=== PATIENT | female | born 1945 ===

== ENCOUNTER 2017-02-22 09:25 | Day surgery (SDC) | payer MEDICARE, OTHER ==
[~2017-02-22] VITALS: Ht 162.6 cm; Wt 60.0 kg
[~2017-02-22 09:25] MED LIST: 0.9% Sodium Chloride 1,000 ML IV SCH; ASPI-973 PO; FLUT9.9S NS; LISI-571 PO; OMEP10CA4 PO; Sodium Chloride LOK Flush 10 mL Syringe IV PRN; TRIA1CAP PO; [UNRECOGNIZED DRUG - CODE] PO; fentaNYL-PF 50 mCg/mL 2 mL Inj IVPUSH PRN
[2017-02-22 10:03] VITALS: BP 145/81; PULSE 84; RESP 16; O2SAT 98
[2017-02-22] MEDS ORDERED: METF500T4 PO (10:06)
[2017-02-22] MEDS ORDERED: LORA10CA PO (10:06)
[2017-02-22 11:37] VITALS: BP 142/84; PULSE 77; RESP 16; O2SAT 99
[2017-02-22 11:51] VITALS: BP 142/69; PULSE 74; RESP 12; O2SAT 98
[2017-02-22 11:56] VITALS: BP 146/80; PULSE 72; RESP 16; O2SAT 98
[2017-02-22 11:59] VITALS: BP 152/79; PULSE 70; RESP 12; O2SAT 95
--- NOTE | 2017-02-22 13:44 | ENDO ---
[address] [address] ENDOSCOPY PROCEDURE PATIENT: JAY WHITTEN : 1945 MR#: [id number] ADMIT: 02/22/2017 JOB ID: [id number] PROCEDURE: Colonoscopy. INDICATION: Personal history of colon polyps. Patient's ASA classification is II. Mallampati score is II. MEDICATIONS: Versed at 7 mg, fentanyl 125 mcg. INSTRUMENT USED: PCF-H180AL. Prep quality was fair. PROCEDURE DETAILS: After informed consent was obtained, the patient was brought to the GI suite, where she was placed on oxygen via nasal cannula and monitored with continuous pulse oximeter, telemetry, and blood pressure monitoring. A time-out was performed. Then, she was placed in the left lateral decubitus position and medications were administered for sedation. Digital rectal exam was performed and was unremarkable. The colonoscope was then inserted into the rectum and advanced under direct visualization to the cecum, which was identified by the presence of the ileocecal valve and appendiceal orifice. Once the cecum was reached, colonoscope was withdrawn back into the rectum and mucosa and lumen were examined. In the rectum, retroflexion was performed. Following retroflexion, remaining air in the rectum was suctioned, and procedure was completed. FINDINGS: 1. In the ascending colon, there were five polyps ranging in size from diminutive to approximately 4 mm. Polyps were removed with a combination of cold biopsy forceps and cold snare. 2. In the sigmoid colon, there were three polyps ranging in size from 4 mm to 6 mm. Polyps were removed with a combination of hot snare and cold snare. 3. In the rectum, there was an approximately 4 mm sessile polyp that was removed with a cold snare. 4. Scattered diverticula were seen throughout the left side of the colon. 5. In the ascending colon, there was a submucosal mass. Appearance was consistent with a lipoma. 6. In the ascending colon, there was evidence of a previously placed tattoo. The mucosa distal to and proximal to this tattoo was closely examined and no abnormalities were noted. IMPRESSION: 1. Five ascending colon polyps. 2. Three sigmoid polyps. 3. One rectal polyp. 4. Left-sided diverticulosis. 5. Ascending colon lipoma. 6. Previously placed tattoo in the ascending colon. RECOMMENDATIONS: 1. Avoid NSAIDs and anticoagulants for 72 hours. 2. Fiber-rich diet. 3. Repeat colonoscopy in two years. COMPLICATIONS: None. ESTIMATED BLOOD LOSS: Less than 5 mL. CC: Saima Russell, primary care provider.
--- NOTE | 2017-02-25 12:15 | PATH ---
SURGICAL PATHOLOGY Attending Physician:Sukh Adams CASE STATUS: Signed Out PATIENT NAME: JAY WHITTEN PID: [id number] : 1945 DATE COLLECTED:02/22/2017 20:56 SPECIMEN: 1: Colon, Polyp 2: Colon, Polyp 3: Rectum, Biopsy CLINICAL HISTORY: 1). ASCENDING POLYPS X5 2). SIGMOID POLYP X3 3). RECTAL POLYP X1 FINAL DIAGNOSIS: 1.ASCENDING COLON POLYPS: TUBULAR ADENOMA INVOLVING MULTIPLE BIOPSY FRAGMENTS. SESSILE SERRATED ADENOMA INVOLVING SINGLE BIOPSY FRAGMENT. 2.SIGMOID COLON POLYPS: HYPERPLASTIC POLYPS INVOLVING ALL BIOPSY FRAGMENTS. 3.RECTAL POLYP: MINUTE TISSUE FRAGMENT DID NOT SURVIVE PROCESSING WITH NO TISSUE PRESENT ON THE HISTOLOGIC SECTION. ICD10 D12.2 GROSS DESCRIPTION: Received are three formalin-filled containers, each labeled with the patient' s name. 1. Received in formalin, labeled with the patient' s name and "ascending polyps x5", are multiple fragments of bourne, soft tissue ranging in size from 0.1 x 0.1 x 0.1 cm to 0.2 x 0.2 x 0.1 cm. All fragments are totally submitted in cassette 1A. 2. Received in formalin, labeled with the patient' s name and "sigmoid polyps x3", are three fragments of bourne, soft tissue ranging in size from 0.2 x 0.2 x 0.1 cm to 0.6 x 0.5 x 0.4 cm. The larger fragment is divided. All fragments are totally submitted in cassette 2A. 3. Received in formalin, labeled with the patient' s name and "rectal polyp x1", is one fragment of bourne, soft tissue measuring less than 0.1 cm by less than 0.1 cm by less than 0.1 cm. The fragment is totally submitted in cassette 3A. ([id number]) MICRO DESCRIPTION: See diagnosis. ICD-9 CODES: CPT CODES: 1: 18690 2: 00984 3: 26463 Electronically Signed Out Ken Fang MD [facility] [address], [place] [address] Technical component performed at [facility], [address], [place], [address]
== END 2017-02-22 23:59 | disposition home or self-care (01) ==
LOC: END 09:25
PROVIDERS: ATTEND Internal Medicine Gastroenterology
DX: Z12.11 Encounter for screening for malignant neoplasm of colon (principal); D12.2 Benign neoplasm of ascending colon; K63.5 Polyp of colon; K62.1 Rectal polyp; D17.79 Benign lipomatous neoplasm of other sites; K57.30 Diverticulosis of large intestine without perforation or abscess without bleeding; Z86.010 Personal history of colon polyps; K21.9 Gastro-esophageal reflux disease without esophagitis; F17.210 Nicotine dependence, cigarettes, uncomplicated; Z79.82 Long term (current) use of aspirin
CPT/HCPCS: 45380; 45385; 99153; G0500; J2250; J3010; J7030

== ENCOUNTER 2017-02-24 22:26 | Emergency (ER) | payer MEDICARE, OTHER ==
[~2017-02-24] VITALS: Ht 162.6 cm; Wt 60.5 kg
[~2017-02-24 22:26] MED LIST changes: -0.9% Sodium Chloride 1,000 ML IV SCH; +LORA10CA PO; +METF500T4 PO; -OMEP10CA4 PO; -Sodium Chloride LOK Flush 10 mL Syringe IV PRN; -TRIA1CAP PO; -[UNRECOGNIZED DRUG - CODE] PO; -fentaNYL-PF 50 mCg/mL 2 mL Inj IVPUSH PRN
[2017-02-24 22:30] VITALS: BP 197/93; PULSE 90; RESP 20
--- NOTE | 2017-02-24 23:01 | ED.REPORT ---
HPI-Abd Pain F 40 and Over Date of Service Feb 24, 2017 ED Provider: Emmanuel Bennett MD A 71 year old female with a history of hypertension on Lisinopril and diabetes mellitus presents to the ED with cramping epigastric abdominal pain that began yesterday. The episodes of pain are intermittent and radiate to her chest. She also reports an episode of associated SOB. Patient had a recent colonoscopy 2 days ago that revealed 5 ascending colon polyps, 3 sigmoid polyps and 1 rectal polyp that were subsequently removed. Patient has not had a BM in 4 days. She denies any recent rectal bleeding, hematochezia, diarrhea, vomiting, fever, or chills. Patient denies any previous abdominal surgeries. Onset of this pain was noted after eating ice cream. Nursing Notes Stated Complaint: STOMACH PAIN Chief Complaint: Female Abdominal Pain Nursing Notes Reviewed: Yes Allergies: Coded Allergies: No Known Drug Allergies (Verified Allergy, Unknown, 01/01/14) Scheduled Aspirin (Aspirin) 81 Mg Tablet 81 MG PO DAILY Lisinopril (Lisinopril) 5 Mg Tablet 5 MG PO DAILY Loratadine (Claritin) 10 Mg Capsule 10 MG PO DAILY Metformin (Metformin) 500 Mg Tablet 500 MG PO DAILY Omeprazole (Omeprazole) 20 Mg Tablet.dr 20 MG PO BID Miscellaneous Medications Fluticasone Propionate (Flonase Allergy Relief) 50 Mcg/Actuation [place].susp 9.9 ML NS General Time Seen by MD: 23:00 Chief Complaint Abdominal pain Hx Obtained From: Patient Arrived By: Walk-in Sudden in Onset?: No Onset Occurred: 2 days ago Symptom Duration: Intermittent Progression since Onset: Unchanged Location: : Epigastric Quality: Cramping, Painful Radiation: : Epigastric Severity: Current: Moderate Severity: Maximum: Moderate Associated with: Reports: Chest pain, Constipation, Shortness of breath, Denies: Chills, Diarrhea, Fever, Hematochezia, Vomiting Pertinent Negative: Pt denies other symptoms Recent Healthcare: No recent hospitalization, Recent doctor visit Risk Factors )( AAA Risk Stratification Risk factors reviewed Past Medical History Past Medical History 1. Hypertension 2. Diabetes Mellitus 3. Possible Leukocytosis dermatitis Past Surgical History Recent Colonoscopy with biposy Smoking History Current Every Day Smoker Social History Other Social History: Good social support, , Local resident Ambulatory Status Independent Review of Systems Denies rectal bleeding Constitutional: Denies: Chills, Fever Respiratory: Reports: Shortness of breath Cardiovascular: Reports: Chest pain GI: Reports: Abdominal pain (epigatric), Constipation, Denies: Bloody/tarry stool, Diarrhea, Hematochezia, Vomiting Complete sys rev & neg: except as marked. Physical Exam Vital Signs Vital Signs (First) Date Time Temp Pulse Resp B/P Pulse Ox O2 Delivery O2 Flow Rate FiO2 02/24/17 22:30 90 20 197/93 Room Air 02/25/17 00:37 36.1 97 Initial VS: Reviewed Head / Eyes: Atraumatic, Normocephalic, PERRL Neck: Supple, Non-tender, Full range of motion Extremities: Vascular intact, Neuro intact, No swelling, No tenderness Skin: Warm, Dry, No cyanosis Neurologic: Alert, Oriented, Nonfocal Psychiatric: Mood/affect normal, Behavior normal, Normal thought content General/Constitutional: Awake, Alert, No acute distress, Well appearing, Well developed Respiratory / Chest: Atraumatic, Breath sounds NL, Breath sounds = bilat, No respiratory distress Cardiovascular: Heart rate NL, Regular rhythm, Heart sounds NL Abdomen: Atraumatic, Soft, No rebound, No distention Tenderness/Guarding/Rebound: Positive: Guarding voluntary, Tender RUQ..., Tender epigastric Back: Atraumatic, Inspection NL Interpretation & Diagnostics Lab Results Interpretation Result Diagram: 02/24/175 02/24/172254 Test 02/24/17 22:55 02/25/17 00:01 White Blood Count 12.2th/mm3 (3.8-10.1) Red Blood Count 5.18mil/mm3 (3.90-5.20) Hemoglobin 15.1g/dL (12.0-15.6) Hematocrit 44.5% (35.0-46.0) Mean Corpuscular Volume 85.9fL (81-100) Mean Corpuscular Hemoglobin 29.2pg (27.0-35.0) Mean Corpuscular Hemoglobin Concent 33.9% (32.0-37.0) Red Cell Distribution Width 14.5% (12.3-15.4) Platelet Count 216bil/L (150-400) Neutrophils (%) (Auto) 69.0% (40-74) Lymphocytes (%) (Auto) 21.2% (14-46) Monocytes (%) (Auto) 7.6% (4-12) Eosinophils (%) (Auto) 1.7% (0-5) Basophils (%) (Auto) 0.3% (0-3) Sodium Level 137mEq/L (134-144) Potassium Level 3.5mEq/L (3.5-5.2) Chloride Level 98mEq/L (97-108) Carbon Dioxide Level 20mmol/L (18-29) Blood Urea Nitrogen 13mg/dL (8-27) Creatinine 0.72mg/dL (0.57-1.00) Estimat Glomerular Filtration Rate 114mL/min (>59) Glucose Level 157mg/dL (60-99) Calcium Level 9.7mg/dL (8.5-10.1) Magnesium Level 1.6mg/dL (1.6-2.6) Total Bilirubin 0.2mg/dL (0.0-1.2) Aspartate Amino Transf (AST/SGOT) 12U/L (0-50) Alanine Aminotransferase (ALT/SGPT) 10U/L (0-32) Alkaline Phosphatase 65U/L (25-165) Troponin T 0.010ug/L (0.0-0.011) Total Protein 7.2g/dL (6.4-8.4) Albumin 4.0g/dL (3.4-5.0) Lipase 29U/L (13-60) Hold Coleman Top Tube Received (Received) Urine Color Straw (YELLOW) Urine Appearance Hazy (CLEAR,HAZY) Urine pH 6.0 (5.0-8.0) Urine Specific [place] 1.011 (1.003-1.035) Urine Protein Negativemg/dL (NEG,TRACE) Urine Glucose (UA) Negativemg/dL (NEGATIVE) Urine Ketones Negativemg/dL (NEGATIVE) Urine Occult Blood Trace (NEGATIVE) Urine Nitrite Negative (NEGATIVE) Urine Bilirubin Negative (NEGATIVE) Urine Urobilinogen Normalmg/dL (NORMAL) Urine Leukocyte Esterase Small (NEGATIVE) Urine RBC 0-2/hpf (0-2) Urine WBC 0-5/hpf (0-5) Urine Epithelial Cells Moderate/hpf (NONE-MOD) Urine Crystals Amorphous urates (NONE Urine Bacteria Moderate/hpf (NONE-FEW) Urine Hyaline Casts None/lpf (NONE) Urine Granular Casts None seen (NONE SEEN) Urine Waxy Casts None seen (NONE SEEN) Urine Red Blood Cell Casts None seen (NONE SEEN) Urine White Blood Cell Casts None seen (NONE SEEN) Urine Mucus Present (None Seen) Urine Trichomonas None seen (NONE SEEN) Urine Yeast None (NONE SEEN) Urinalysis Comment None Urine Culture Reflexed Indicated General Lab Results Interp 1: CBC - leukocytosis (WBC - 12) ECG Interpretation ECG Interpretation: Sinus Rhythm Rate 80 Prolonged DC interval Probable left atrial enlargement Time: 23:04 Interpreted by: ED physician X-Ray Abdominal Interpretation No free air Interpretation / Wet Read by: Wet read ED physician CT Abd / Pelvis Interpretation IMPRESSION: Gallbladder distention with questionable mild gallbladder wall edema. Sonographic follow-up recommended. Mild nodular prominence of the left adrenal gland. This could be secondary to benign adenoma/hyperplasia. Neoplasm not excluded and short-term follow-up is recommended. Tiny probably benign left renal cysts. Study type: Abdominal CT IV contrast, Abdom CT oral contrast Interpretation / Wet Read by: Interpret - Radiologist ([facility]) Re-Eval/Medical Decision Med Decision/Clinical Course 71-year-old presents four days out from a colonoscopy with multiple biopsies, with diffuse abdominal pain more prominent in the right upper quadrant. CT shows some hyperemia and edema of the gallbladder wall without obvious stone or obstruction. LFTs are unremarkable. No other significant findings. Suspect the pain is biliary colic by description. She will require FAST exam ultrasound the next few days. Referred to PCP to follow up. Low-fat diet. Omeprazole twice a day for the short-term. Re-Evaluation/Progress : Time of Eval: 01:48 Patient Status: Condition improved, Pain improved Re-Evaluation/Progress Note: The patient's discomfort has improved. All questions about the treatment plan are addressed. The patient understands and agrees with the intended treatment plan to discharge with follow-up ultrasound. Counseled Regarding: Diagnosis, Lab results, Need for follow-up, When/why to return to ED Discharge & Departure Primary Impression: Biliary colic Disposition: Home Discharge Condition All VS Reviewed: Yes Condition: Improved Patient Instructions: Biliary Colic (ED), Low Fat Diet (ED) Additional Instructions: Contact your doctor for follow-up. Contact her also to arrange a fasting morning ultrasound. I suspect he may have gallstones, and that this pain was an episode of biliary colic. This is brought on commonly by ingestion of fatty food, such as ice cream. Refer to the low-fat diet instructions enclosed. Return if any abdominal pain does not resolve over the course of a few hours. Return if any fever, vomiting, or other new symptoms of concern. Omeprazole twice daily for the next ten days then daily for the rest of the month. Referrals: Saima Russell (PCP) Scribe Attestation Portions of this note were transcribed by Carlos Dejesus. I, Dr. Bennett personally performed the history, physical exam and medical decision-making; I reviewed and confirmed the accuracy of the information in the transcribed note. Signed by: Christiano Bill, 02/25/17 0159. copies to: Saima Russell Christopher W MD Feb 24, 2017 23:01 CARLOS DEJESUS Feb 24, 2017 23:11
[2017-02-24 23:07] LABS: BASOPHILS % (AUTO) 0.3 % (0-3); EOSINOPHILS % (AUTO) 1.7 % (0-5); MONOCYTES % (AUTO) 7.6 % (4-12); Mean Corpuscular Hemoglobin 29.2 pg (27.0-35.0); Mean Corpuscular Volume 85.9 fL (81-100); Platelet Count 216 bil/L (150-400)
[2017-02-24 23:28] LABS: Magnesium 1.6 mg/dL (1.6-2.6)
[2017-02-24] MEDS ORDERED: Iohexol 300 mg/mL 30 mL Inj PO ONE (23:45)
[2017-02-25 00:31] LABS: APPEARANCE,URINE HAZY (CLEAR,HAZY); COLOR,URINE STRAW (YELLOW); OCCULT BLOOD,URINE TRACE (NEGATIVE); UROBILINOGEN,URINE NORMAL (NORMAL)
[2017-02-25 00:37] VITALS: BP 200/93; PULSE 79; RESP 16; O2SAT 97
[2017-02-25] MEDS ORDERED: Ondansetron 2 mg/mL 2 mL Inj IVPUSH ONE (00:40)
[2017-02-25] MEDS ORDERED: HYDROmorphone 0.5 mg/0.5 mL iSecure Syringe IVPUSH PRN (00:40)
[2017-02-25] MEDS ORDERED: OMEP20TA86 PO (01:56)
[2017-02-25 02:14] VITALS: BP 180/88; PULSE 74; RESP 16; O2SAT 96
--- NOTE | 2017-02-25 08:56 | DRSVH ---
PROCEDURE: CT ABDOMEN AND PELVIS WITH CONTRAST ([id number]) INDICATIONS: pain post colonoscopy/biopsies TECHNIQUE: After the administration of intravenous contrast, 5 mm thick sections acquired from the diaphragm to the symphysis. 5 mm coronal and sagittal reformats were acquired. For radiation dose reduction, the following was used: automated exposure control, adjustment of mA and/or kV according to patient siz e. COMPARISON: None. FINDINGS: Image quality: Excellent. ABDOMEN: Lung bases: Lung bases are clear. Heart size is normal. Solid organs: There is a 1.0 cm hypodensity in the inferior liver, most likely a cyst or hemangioma. A few indeterminate hepatic hypodensities in liver are noted. Liver and spleen are normal in size an d enhancement. Gallbladder is distended. No gallstones. Biliary system is non dilated. Pancreas en hances normally. Left adrenal thickening. Kidneys demonstrate normal size and enhancement, without h ydronephrosis. A couple of small indeterminate cortical nodules are seen in the left kidney. Peritoneum and bowel: Bowel loops demonstrate normal caliber. There is equivocal concentric thicken ing of sigmoid colon. No free fluid or air. Appendix is normal. There are scattered colonic divertic ej. No evidence for active diverticulitis. Moderate amount of stool in colon. Nodes and vessels: No retroperitoneal or mesenteric adenopathy by size criteria. Aorta and inferior vena cava are normal in size. Moderate to severe atherosclerosis. Miscellaneous: No ventral hernias. PELVIS: Genitourinary: Bladder wall thickness is normal. Miscellaneous: No inguinal hernias or adenopathy. Bones: No suspicious bony lesions. No vertebral body compression fractures. IMPRESSION: 1. Equivocal concentric thickening of sigmoid colon. In the absence of oral contrast, this finding co uld be secondary to artifact but mild inflammatory change cannot be excluded. Recommend clinical cody elation and followup. No free air. 2. Moderate amount of stool in colon. 3. Diverticulosis. No acute diverticulitis. 4. Distended gallbladder. 5. A hepatic cyst or hemangioma in the inferior liver. There multiple tiny indeterminate hepatic hypo densities. 6. A few tiny indeterminate hypodensities in left kidney. No significant discrepancy with the date night caregiver radiology preliminary report. Dictated by: Bernard Frost M.D. on 02/25/2017 at 8:34 Approved by: Bernard Frost M.D. on 02/25/2017 at 8:54
--- NOTE | 2017-02-25 11:54 | DRSVH ---
PROCEDURE: X-RAY CHEST, TWO VIEWS ([id number]) INDICATIONS: abdo/chest pain post colonoscopy TECHNIQUE: 2 views of the chest were acquired. COMPARISON: None. FINDINGS: Surgical changes and devices: None. Lungs and pleura: No pleural effusions or pneumothorax. Lungs are clear. Mediastinum: Mediastinal contours are normal. Heart size is normal. Bones and chest wall: No suspicious bony abnormalities. Soft tissues appear unremarkable. IMPRESSION: No acute cardiopulmonary disease. Dictated by: Ashish [place] [facility] Interpreted: Lukasz Burrell MD on 02/25/2017 at 9:46 Approved by: Lukasz Burrell M.D. on 02/25/2017 at 11:51
== END 2017-02-25 02:15 | disposition home or self-care (01) ==
LOC: SED 22:26
DX: K80.20 Calculus of gallbladder without cholecystitis without obstruction (principal); E11.9 Type 2 diabetes mellitus without complications; I10 Essential (primary) hypertension; F17.200 Nicotine dependence, unspecified, uncomplicated; Z79.82 Long term (current) use of aspirin; Z79.84 Long term (current) use of oral hypoglycemic drugs; Z79.899 Other long term (current) drug therapy
CPT/HCPCS: 36415; 71020; 74177; 80053; 81000; 83690; 83735; 84484; 85025; 87086; 87088; 93005; 96374; 96375; 99285; J1170; J2405; Q9967

== ENCOUNTER → 2017-04-02 | Day surgery (SDC) | payer MEDICARE, OTHER ==
[2017-04-02] VITALS (9 sets, daily range): BP systolic 128–163; BP diastolic 46–74; PULSE 64–85; RESP 12–20; O2SAT 93–100
[~2017-04-02] VITALS: Ht 162.6 cm; Wt 57.6 kg
[~2017-04-02] MED LIST changes: +Albuterol HFA 200 Puff Inhaler (Vent Pts Only) ONE; +Albuterol-Ipratropium 3 mL Inhalation Solution NEB PRN; +Bupivacaine-MPF 0.5% 30 mL Inj INFILTRATE ONE; +Dexamethasone 4 mg/mL Inj ONE; +EPHEDrine Sulfate 50 mg/mL Inj IVPUSH PRN; +HYDROmorphone 1 mg/mL Inj IVPUSH PRN; +Labetalol 5 mg/mL 20 mL Inj IV PRN; +Lactated Ringer's 500 ML IV PRN; +Levofloxacin 500 mg/100 mL D5W IV SCH; +MetoCLOpramide 5 mg/mL 2 mL Inj IVPUSH PRN; +OMEP20TA86 PO; +OXYC5TAB72 PO; +Ondansetron 2 mg/mL 2 mL Inj IVPUSH PRN; +POLY17PO6 PO; +Phenylephrine 10,000 mCg/mL Inj IVPUSH PRN; +Phenylephrine 10,000 mCg/mL Inj ONE; +Polyethylene Glycol (PEG) 17 Gm Powder PO SCH; +Propofol 10 mg/mL 20 mL Inj ONE; +Rocuronium 10 mg/mL 5 mL Inj ONE; +fentaNYL-PF 50 mCg/mL 2 mL Inj ONE; +hydrALAZINE 20 mg/mL Inj ONE
[2017-04-02] MEDS: Lactated Ringer's 1,000 ML IV SCH ×4 (11:40→16:00)
--- NOTE | 2017-04-02 12:24 | PCM.HPANE ---
Patient Data Surgeon Admitting Provider: Attending Provider:Vimal Barba MD Primary Care Physician:Saima Russell Other Provider:Yassine William Anesthesia Reason for Visit Gallstones Ht/WT & BMI Height (Feet): 5 Height (Inches): 4.00 Weight (Kilograms): 57.600 Body Mass Index 21.00 Allergies Coded Allergies: No Known Drug Allergies (Verified Allergy, Unknown, 03/29/17) Past Anesthesia History Anesthesia History: Denies:: Abnormal Airway, Anesthesia Reactions, Difficult Intubation, Fam Anesthesia Reaction, Fam Malignant Hypertherm, Malignant Hyperthermia Diabetes History Hx Diabetes?: Yes Glycemic Control: Oral Medication Current Bedside Blood Glucose: 106 MRSA MRSA: No Medications Blood Thinner: Aspirin Last Dose Blood Thinner: Feb 22, 2017 Hypertension Medication: Yes (Lisinopril) Home Meds Incl Beta Sanchez: No Active Scripts oxyCODONE 5 Mg Tablet5 Mg PO BID PRN For Moderate Pain #10 TABLET Prov:Vimal Barba MD 04/02/17 Polyethylene Glycol 3350 (Miralax)17 Gm Powd.pack17 Gm PO DAILY #20 DOSE Prov:Vimal Barba MD 04/02/17 Omeprazole 20 Mg Tablet.dr20 Mg PO BID #60 TABLET Prov:Emmanuel Bennett MD 02/25/17 Reported Medications Metformin 500 Mg [id number] Mg PO DAILY Ref 0 02/22/17 Loratadine (Claritin)10 Mg Ronnorv72 Mg PO DAILY Ref 0 02/22/17 Fluticasone Propionate (Flonase Allergy Relief)50 Mcg/Actuation [place].susp9.9 Ml NS 02/21/17 Aspirin 81 Mg Etxaka42 Mg PO DAILY Ref 0 02/21/17 Lisinopril 5 Mg Tablet5 Mg PO HS #30 TABLET Ref 0 12/27/13 History History of ENT Problems?: Yes HEENT History: Positive for:: Cataracts (removed) Hearing Problem Sinus Problem (ALLERGIC RHINITIS) Denies:: Abnormal Airway Difficult Intubation Dysphagia Glaucoma Denture Type: None Teeth Condition: Within Normal Limits Hx of Heart Problems?: Yes Cardiovascular History: Positive for:: Hypertension Denies:: AICD Atrial Fibrillation Chest Pain Pacemaker Valvular Heart Disease Hx of Respiratory Problem?: Yes Respiratory History: Positive for:: Cough (post nasal drip) Denies:: Asthma COPD Dyspnea Emphysema Hemoptysis Pneumonia Pulmonary Embolism Tuberculosis Use of C-PAP Machine Use of Inhalers / NEBS Hx Neurologic Problems?: No Neurological History: Denies:: Alzheimer's Disease CVA Dementia Dizziness Headaches Multiple Sclerosis Parkinson's Disease TIA Hx of GI Problems?: Yes Other History/Comment Cholelithiasis Hx of Problems?: No Female Hx: Denies:: Currently Problems with Breasts? Skin History: Denies:: History Skin Disorders? Pressure Ulcers Hx Musculoskeletal Problems?: No Musculoskeletal History: Denies:: Back Injury Degenerative Joint Fibromyalgia Joint Replacement Musculoskeletal Trauma Myasthenia Gravis Osteoarthritis Rheumatoid Arthritis Systemic Lupus Hx of Psycho/Social Problems?: No Psycho Social History: Denies:: Anxiety Hx Depression Hx Surgeries?: Yes (CATARACT) Hx Any Other Health Problems?: Yes Other History: Denies:: Cancer Endocrine Disease Hospitalization Thyroid Disease History Blood Transfusions: Positive for:: Accept Blood Products? Denies:: Blood Transfusions Hx Diabetes: YesBedside Blood Glucose: 106 Hx Alcohol Use: Yes (SELDOM)Hx Substance Use: No Smoking Status: Current Every Day Smoker Have You Smoked inLast 12 mo: YesApprox How Many Cigarettes/day: 5-10 Stop/Bang Treated for Sleep Apnea?: No S-Snoring: Do You Snore Loudly: No T-Tired: feel tired, fatigued: No O-Obsered: Observed not breath: No P-Blood Pressure: treated: Yes B- Body Mass Index > 35 kg/m2: No A- Age over 50: Yes N- Neck Large Circumference: No G- Gender Male: No OPAL Total Score: 2 OPAL Risk Assessment: Low Risk, <3 Yes Risk Assessment Category Category 1A: Patient has history of documented sleep apnea, and HAS NOT received any narcotic, sedative or anesthesia administration during this stay. Category 1B: Patient has history of documented sleep apnea, and HAS received any narcotic , sedative or anesthesia administration during this stay Category 2: Patient has SUSPECTED Obstructive Sleep Apnea, and HAS received any narcotic , sedative or anesthesia administration during this stay. Category 3: Patient has SUSPECTED Obstructive Sleep Apnea and HAS NOT received narcotic, sedative or anesthesia administration during this stay. Category 4: Outpatient in Procedural Areas with known sleep apnea or who screen positive for High Risk via the STOP/BANG questionnaire. Exam Exam Vital Signs Vital Signs Date Time Temp Pulse Resp B/P Pulse Ox O2 Delivery O2 Flow Rate FiO2 04/02/17 11:56 36.7 79 16 150/74 96 Room Air General Appearance: Alert, Oriented X3, Cooperative HEENT/AIRWAY: MP 2 Lungs: Clear to Auscultation Heart: Exam Unremarkable, Regular Rate/Rhythm, No Murmurs/Rubs/Gallops Meds/Labs/Diagnostics Admission Meds Current Medications Lactated Ringer's (Lr) 1,000 ml @ 120 mls/hr Q8H20M IV Last administered on 11:40; Start 04/02/17 at 05:00; Stop 04/02/17 at 13:19 Gabapentin (Neurontin) 600 mg PREOP ONCE PO Last administered on 04/02/17 11: 50; Start 04/02/17 at 06:00; Stop 04/02/17 at 06:01; Status DC Celecoxib (CeleBREX) 200 mg PREOP ONCE PO Last administered on 04/02/17 11:50 ; Start 04/02/17 at 06:00; Stop 04/02/17 at 06:01; Status DC Acetaminophen (Tylenol) 650 mg PREOP ONCE PO Last administered on 04/02/17 11 :50; Start 04/02/17 at 06:00; Stop 04/02/17 at 06:01; Status DC Bedside Blood Glucose: 106 Plan Impression Patient chart reviewed, patient interviewed and anesthestic plan with risks, benefits, and alternatives discussed, and informed consent obtained. NPO per Anesth. Guidelines: Yes ASA Physical Status: ASA2 Mod Systemic Disease Anesthetic Plan: GA Bene/Risks/Altern/Consents: Yes HP Complete Prior to Induction: Yes Amish Bueno MD Apr 02, 2017 12:24
--- NOTE | 2017-04-02 14:19 | PCM.SURGPO ---
Immediate Operative Note Date of Surgery: Apr 02, 2017 Pre Operative Diagnosis Cholelithiasis Post Operative Diagnosis Cholelithiasis Procedure Laparoscopic Cholecystectomy with Cholangiogram Surgeon and Gradall Operator Surgeon: Vimal Barba MD Assistants: Larry EPPS & Anna Quinones DO Findings Cholelithiasis. Could not fill the common hepatic duct on cholangiogram Complications There were no periprocedural complications identified. Surgical Specimen Removed: Yes Specimen sent to Pathology: Yes Anesthetic Administered: GA Grafts, Implants: None Output, Estimated Blood Loss: 1 Blood Admin during surgery: No Attending Statement Professor Of Practice listed was medically necessary for the successful completion of the case Vimal Barba MD Apr 02, 2017 14:19
[2017-04-02] MEDS: fentaNYL-PF 50 mCg/mL 2 mL Inj IVPUSH PRN ×2 (14:43→14:49)
--- NOTE | 2017-04-02 14:47 | DRSVH ---
PROCEDURE: X-RAY OPERATIVE CHOLANGIOGRAM ([id number]) INDICATIONS: GALLSTONES COMPARISON: None. FINDINGS: Biliary ducts: The surgeon injected contrast into the biliary ducts after cannulation of the cystic duct stump. Visualized extrahepatic bile ducts are normal in caliber, without strictures. Intrahepa tic bile ducts not imaged. No intraluminal filling defects to suggest retained ductal stones or slud ge. No evidence for iatrogenic ductal injury. Duodenum: Contrast flows promptly through the sphincter of Oddi into the duodenum, which appears nor mal in caliber. IMPRESSION: There is extravasation presumably from the cystic duct cannulation site which extends to the gallbladder bed and around a portion of the liver otherwise the extrahepatic bile duct appears no rmal. Of note, the intrahepatic bile ducts are not imaged. Dictated by: Ashish CASTILLO Interpreted: Madhav Marie MD on 04/02/2017 at 14:11 Approved by: Madhav Marie M.D. on 04/02/2017 at 14:45
--- NOTE | 2017-04-02 16:10 | PCM.ANEP1 ---
Post Anesthesia PACU Phase 1 Assessment Vital Signs Vital Signs Date Time Temp Pulse Resp B/P Pulse Ox O2 Delivery O2 Flow Rate FiO2 04/02/17 15:15 66 12 136/49 94 Nasal Cannula 2 04/02/17 15:07 66 12 136/50 94 Nasal Cannula 2 04/02/17 15:01 78 17 128/46 96 Nasal Cannula 2 04/02/17 14:45 77 16 149/60 93 Room Air 04/02/17 14:42 80 19 155/63 99 Simple Mask 10 04/02/17 14:35 82 20 156/61 100 Simple Mask 10 04/02/17 14:31 36.3 85 16 163/66 100 Simple Mask 10 04/02/17 11:56 36.7 79 16 150/74 96 Room Air Anesthetic Administered: GA Level of Alertness: Awake, talking HAMILTON's with Equal Strength: Yes Pain: No Nausea or Vomiting: No CV Function & Hydration Stable: Yes Airway Device: Endotrachial Tube Oxygen Delivery: Room Air Lungs: Clear to Auscultation, Normal Air Movement PACU Phase 2 Assessment Complications: No Follow up Care: No Patient Instructions Provided: N/A Amish Bueno MD Apr 02, 2017 16:10
--- NOTE | 2017-04-02 18:05 | OP ---
[address] [address] OPERATIVE REPORT PATIENT: JAY WHITTEN : 1945 MR#: [id number] ADMIT: 04/02/2017 JOB ID: [id number] DATE OF SURGERY: 04/02/2017 PREOPERATIVE DIAGNOSIS(ES): Cholelithiasis. POSTOPERATIVE DIAGNOSIS(ES): Cholelithiasis. PROCEDURE PERFORMED: Laparoscopic cholecystectomy with cholangiogram. SURGEON: Vimal Barba MD PROTEIN SCIENTIST: Titi Lee PA-C and Anna Quinones D.O. INDICATIONS: The patient is a 71-year-old lady who presented to the emergency department on February 24, 2017, with upper abdominal pain. She underwent a CT and then an abdominal ultrasound and was sent to me for surgical consultation. After discussing the risks, benefits, and alternatives, she is here today for laparoscopic cholecystectomy for cholelithiasis. PROCEDURE DETAILS: She was placed in supine position and underwent smooth induction of general anesthesia. Abdomen was prepped and draped in the usual sterile fashion. Surgical time-out was undertaken using safety checklist, and all were in agreement. I began by entering the abdomen using an open Marizol technique in the infraumbilical location. I obtained pneumoperitoneum and then up-sized to a 12 mm. I then placed three 5 mm ports in the epigastrium and the right upper abdomen, and retracted the gallbladder cephalad and to the right. I then incised the triangle of Calot anteriorly and posteriorly and divided the cystic artery between clips. I then clipped the cystic duct towards the specimen and obtained a cholangiogram. Despite numerous attempts, I was unable to get contrast up the common hepatic duct into the liver; but, given the anatomic determination that I was nowhere close to the cystic duct/common bile duct junction, I proceeded to divide the cystic duct after clipping it doubly on the patient's side. After that I dissected the rest of the gallbladder off the liver bed and placed it in an EndoCatch bag, suctioned all the fluid free from the right upper quadrant, and extracted the specimen through the umbilical port site. The umbilical port fascia was closed with [id number] 0-Vicryl suture. Skin was reapproximated with 4-0 Monocryl. Steri-Strips and sterile dressing were applied. The patient was recovered from anesthesia and was taken to the recovery room in stable condition. AUREA
--- NOTE | 2017-04-05 16:21 | PATH ---
SURGICAL PATHOLOGY Attending Physician:Vimal Barba MD CASE STATUS: Signed Out PATIENT NAME: JAY WHITTEN PID: [id number] : 1945 DATE COLLECTED:04/02/2017 00:00 SPECIMEN: Gallbladder CLINICAL HISTORY: 1). GALLBLADDER FINAL DIAGNOSIS: Gallbladder, Cholecystectomy: -Cholelithiasis. ICD10: K80.2 GROSS DESCRIPTION: The specimen is received in one formalin filled container labeled with the patient's name, sublabeled "gallbladder" and consists of a 7.0 x 2.0 x 2.0 CM gallbladder. The serosa is smooth. The wall is 0.1-0.2 CM in thickness. The mucosa is a pink to red bourne in color. The lumen contains a dark yellow green thick mucoid material in approximately 40+ yellow-bourne calculi which range in size from 0.3-0.5 CM in greatest dimension. 5 Embosser Operator sections are submitted in one cassette. 04/03/2017DC ICD-9 CODES: CPT CODES: 1: 53279 Electronically Signed Out Chsa Abreu MD [facility] [address], [place] [address] Technical component performed at [facility] [address], [place], [address]
== END | disposition home or self-care (01) ==
LOC: SAS 11:28
PROVIDERS: ATTEND Student in an Organized Health Care Education/Training Program
DX: K80.20 Calculus of gallbladder without cholecystitis without obstruction (principal); I10 Essential (primary) hypertension; E11.9 Type 2 diabetes mellitus without complications; K21.9 Gastro-esophageal reflux disease without esophagitis; Z79.82 Long term (current) use of aspirin